=== PATIENT | female | born 1990 | race Caucasian/White ===

== ENCOUNTER → 2017-04-09 | Outpatient (CLI) | payer MEDICAID ==
[~2017-04-09] MED LIST: PRENATAL VITAMI1 TA5 PO
== END ==
LOC: MHCPAIN 08:55
DX: G89.29 Other chronic pain (principal); M47.817 Spondylosis without myelopathy or radiculopathy, lumbosacral region; M79.2 Neuralgia and neuritis, unspecified; Z87.891 Personal history of nicotine dependence
CPT/HCPCS: G0463

== ENCOUNTER → 2018-03-25 | Outpatient (CLI) | payer MEDICAID | LOC: COL.RAD 15:00 | DX: G43.009 Migraine without aura, not intractable, without status migrainosus (principal); R20.2 Paresthesia of skin ==

== ENCOUNTER → 2021-10-13 | Outpatient (CLI) | payer OTHER | LOC: COL.RAD 12:20 | DX: G43.909 Migraine, unspecified, not intractable, without status migrainosus (principal) ==

== ENCOUNTER → 2021-12-12 | Outpatient (CLI) | payer OTHER | LOC: COL.CARD 11-03 13:00 | DX: R42 Dizziness and giddiness (principal) ==

== ENCOUNTER 2023-03-15 08:23 | Day surgery (SDC) | payer OTHER ==
[~2023-03-15] VITALS: Ht 167.6 cm; Wt 89.6 kg
[2023-03-15] MEDS ORDERED: GLUCOPHAGE XR500 M1 PO (08:55)
[2023-03-15] MEDS ORDERED: EFFEXOR XR75 MG/CAP PO (08:56)
[2023-03-15] MEDS ORDERED: EFFEXOR XR37.5 MG/CA PO (08:56)
[2023-03-15] MEDS ORDERED: PROBIOTIC BLEN1 EACH PO (08:57)
[2023-03-15] MEDS ORDERED: METAMUCIL0.52 G1 (08:58)
[2023-03-15] MEDS ORDERED: SUDAFED30 MG PO (08:59)
[2023-03-15 09:57] VITALS: BP 108/71; PULSE 92; TEMP 98.5
--- NOTE | 2023-03-15 09:59 | NUR ---
0830 PT AMBULATORY TO BAY 3 WITH STEADU GAIT, BREATHING EVEN AND UNLABORED. PT IS ALERT AND ORIENTED, ACCOMPANIED BY HER FRIEND. CONSENTS REVIEWED AND SIGNED BY PT. IV ESTABLISHED. LR INFUSING VIA GRAVITY AT [facility]. CALL LIGHT IN REACH. WARM BLANKET PROVIDED.
[2023-03-15] MEDS ORDERED: MOTRIN 600600 MG/TAB PO (13:09)
[2023-03-15] MEDS ORDERED: NORCO 325 MG-51 TAB PO (13:09)
[2023-03-15 14:00] VITALS: BP 100/58; PULSE 98; TEMP 98.2
--- NOTE | 2023-03-15 14:00 | NUR ---
NURSE HANDOFF COMPLETED BEDSIDE WITH ASSESSMENT OF 3 ABDOMINAL INCISIONS WITH SKIN GLUE CLOSURE. ALL 3 SURGICAL SITES CLEAN AND DRY WITH SKIN GLUE INTACT. PATIENT ALERT AND ORIENTED X3. BREATHING REGULAR AND UNLABORED ON ROOM AIR. SKIN WARM AND DRY. BILATERAL RADIAL PULSES 3+ REGULAR. ABDOMEN SOFT AND NONDISTENDED. PATIENT TRANSPORTED BACK TO ROOM 3 VIA CART. SEE CHART FOR VITAL SIGNS. PATIENT RATES PAIN TOLERABLE 3/10 TO ABDOMEN. DENIES NAUSEA AND SHORTNESS OF BREATH. PATIENT HAD JAKE CRACKERS AND APPLE JUICE. BOTH FOOD AND DRINK TOLERATED WELL. CALL LIGHT IN REACH. FRIEND, VON, PRESENT IN ROOM.
[2023-03-15 14:15] VITALS: BP 94/52; PULSE 95
[2023-03-15 14:30] VITALS: BP 97/55; PULSE 99
[2023-03-15 14:54] VITALS: BP 118/73; PULSE 94
--- NOTE | 2023-03-15 15:00 | NUR ---
DISCHARGE TEACHING COMPLETED WITH PRINTED EDUCATION AND INSTRUCTIONS SENT HOME WITH PATIENT. FOLLOW UP APPOINTMENT DATE, TIME AND LOCATION COMMUNICATED TO PATIENT. PATIENT VERBALIZED UNDERSTANDING OF TEACHING. 1452: PATIENT AMBULATED TO RESTROOOM WITH STEADY GAIT AND VOIDED WITHOUT DIFFICULTY. PATIENT RATES PAIN TOLERABLE 3/10 TO ABDOMEN. 3 ABDOMINAL INCISIONS CLEAN AND DRY WITH GLUE INTACT. 1455: RIGHT WRIST IV REMOVED. GAUZE AND COBAN PLACED OVER SITE. PATIENT CHANGED INTO PERSONAL CLOTHING AND DISCHARGED HOME.
[2023-03-19] MEDS ORDERED: NORCO 325 MG-51 TAB PO (13:31)
== END 2023-03-15 15:00 | disposition home or self-care (01) ==
LOC: SDCO 08:23
DX: K43.9 Ventral hernia without obstruction or gangrene (principal); K21.9 Gastro-esophageal reflux disease without esophagitis; K44.9 Diaphragmatic hernia without obstruction or gangrene; G47.33 Obstructive sleep apnea (adult) (pediatric); Z91.199 Patient's noncompliance with other medical treatment and regimen due to unspecified reason; Z86.16 Personal history of COVID-19; E66.9 Obesity, unspecified; Z68.32 Body mass index [BMI] 32.0-32.9, adult
CPT/HCPCS: C1781; J0690; J1100; J1170; J1885; J1920; J2405; J2704; J3010; J7120